=== PATIENT | male | born 2000 | race African-American/Black ===

== ENCOUNTER 2024-01-14 12:36 | Emergency (ER) | payer MEDICAID ==
[~2024-01-14] VITALS: Ht 175.3 cm; Wt 78.2 kg
[2024-01-14 13:00] VITALS: TEMP 98.5; O2SAT 96
[2024-01-14] MEDS: LORAZEPAM 0.5MG TABLET PO ONE (17:39)
[2024-01-14 17:46] VITALS: BP 140/86; PULSE 91; RESP 16
== END 2024-01-14 17:49 | disposition home or self-care (01) ==
LOC: ER 13:26
DX: F41.9 Anxiety disorder, unspecified (principal); J45.909 Unspecified asthma, uncomplicated; I49.9 Cardiac arrhythmia, unspecified
CPT/HCPCS: 93005; 99283